=== PATIENT | female | born 1990 | race Caucasian/White ===

== ENCOUNTER 2021-02-21 14:37 | Emergency (ER) | payer OTHER, MEDICAID, SELFPAY ==
[2021-02-21 14:49] VITALS: BP 139/84; PULSE 80; RESP 16; TEMP 37.1; O2SAT 99; BMI 24.2
--- NOTE | 2021-02-21 14:53 | PC.NURSE ---
Exposure several days ago. Woke up today with SOB at rest with associated anxiety about it.
[2021-02-21 15:28] LABS: COVID19 -Nasal RAPID Negative (Negative)
--- NOTE | 2021-02-21 15:41 | ED_ITS ---
HPI - General Adult General Chief complaint: Shortness of Breath/Dyspnea Stated complaint: sob/congested this am Time Seen by Provider: 02/21/21 14:51 Source: patient Mode of arrival: Ambulatory History of Present Illness HPI narrative: 30-year-old woman presents with mild cough and dyspnea with exposure to COVID-19. She is on max needed currently. 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 Related Data Allergies Allergy/AdvReac Type Severity Reaction Status Date / Time No Known Drug Allergies Allergy Verified 02/21/21 14:52 Review of Systems Review of Systems Narrative: No fevers, loss of taste or smell, vomiting, diarrhea, dysuria Patient History Social History Smoking Status: Never smoker Smoking Status: Never smoker alcohol intake frequency: a few times a week Substance Use Type: marijuana Exam Narrative Exam Narrative: General: Alert appropriate in no acute distress Respiratory: Able to speak in full sentences, no obvious respiratory distress Skin: No obvious rashes, warm and dry Neurologic: Grossly intact no obvious asymmetries or abnormalities Psych: appropriate insight and affect, cooperative Initial Vital Signs Initial Vital Signs: Vital Signs Temperature 98.7 F 02/21/21 14:49 Pulse Rate 80 02/21/21 14:49 Respiratory Rate 16 02/21/21 14:49 Blood Pressure 139/84 02/21/21 14:49 Pulse Oximetry 99 02/21/21 14:49 Course Orders Ordered: ED Orders 02/21/21 14:52 COVID19 -Nasal swab/Pre-Proc Stat Vital Signs Vital signs: Vital Signs - 8 hr 02/21/21 14:49 Temperature 98.7 F Pulse Rate 80 Respiratory Rate 16 Blood Pressure 139/84 Pulse Oximetry 99 Medical Decision Making Lab Data Labs: Lab Results 02/21/21 Range/Units 14:45 SARS-CoV-2 (PCR) Negative (Negative) MDM Narrative Medical decision making narrative: 30-year-old woman with symptoms that are concerning for COVID with exposure to a household member who is positive. PCR testing is negative today. We discussed using [id number] antigen testing daily for the next couple of days to make sure that she is not simply in the very early window of her infection. Again encouraged her to consider vaccination. She is safe for home discharge Discharge Plan Departure Patient Disposition: Home Clinical Impression: Contact with and (suspected) exposure to covid-19 Instructions: DI for COVID-19 (Suspected or Confirmed ) Activity Restrictions/Additional Instructions: Your PCR COVID test was negative today. I would recommend using the [id number] tests that are available at [facility], [facility] and [facility]. These typically common a pack of 2 and I would recommend a test tomorrow and the following day to make sure that you are not missing infection as it is beginning to develop. I would encourage you to wear a mask when around your grandfather.
[2021-02-21 15:52] VITALS: BP 115/60; PULSE 84; RESP 18; O2SAT 97
== END 2021-02-21 15:58 | disposition home or self-care (01) ==
PROVIDERS: Emergency Provider Emergency Medicine
DX: R05 Cough (principal); R06.00 Dyspnea, unspecified; Z20.822 Contact with and (suspected) exposure to COVID-19
CPT/HCPCS: 87635; 99282; C9803

== ENCOUNTER → 2022-01-19 17:53 | Outpatient (CLI) | payer OTHER, MEDICAID, SELFPAY | PROVIDERS: Visit Provider Physician Assistant | DX: R30.0 Dysuria (principal) | CPT/HCPCS: 81002; 87086 ==

== ENCOUNTER 2022-02-21 13:34 | Emergency (ER) | payer OTHER, MEDICAID, SELFPAY ==
[2022-02-21 13:38] VITALS: BP 176/105; PULSE 91; RESP 20; TEMP 36.8; O2SAT 100; BMI 23.6
[2022-02-21 15:55] VITALS: BP 143/89; PULSE 74; O2SAT 99
[2022-02-21 16:00] VITALS: PULSE 79; O2SAT 100
--- NOTE | 2022-02-21 16:24 | ED.ANXIETY ---
HPI - Anxiety <MELIZA Schuster - Last Filed: 02/21/22 17:36> General Chief Complaint: Anxiety Stated Complaint: Mental health concerns Time Seen by Provider: 02/21/22 14:57 Source: patient Mode of arrival: Ambulatory History of Present Illness HPI narrative: This is a 31-year-old female presents to the emergency department with complaint worsening anxiety, tremors, and sadness which she states has affected her daily functioning and activities. She states that she is feeling like she is having a panic attack but does not know why. 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 Patient states that she does not want to hurt herself or any others, denies any audio or visual hallucinations. Patient states that she has not taking any medications and denies any substance abuse other than marijuana, she denies any excessive alcohol or ingestion of any harmful substances. Patient denies any dysuria, denies taking any medications every day, denies any nausea or vomiting. Denies any vision changes. Denies any recent fever illness. Patient states that she does have a therapist. Related Data Previous Rx's Medication Instructions Recorded diazepam 5 mg tablet 5 mg PO BID PRN anxiety #12 tabs 02/21/22 hydroxyzine HCl 25 mg tablet 25 mg PO TID PRN anxiety #20 tabs 02/21/22 Allergies Allergy/AdvReac Type Severity Reaction Status Date / Time No Known Drug Allergies Allergy Verified 02/21/22 13:38 Review of Systems <MELIZA Schuster - Last Filed: 02/21/22 17:36> Review of Systems Narrative: Review of systems is negative for acute abnormalities unless otherwise noted in HPI Patient History <MELIZA Schuster - Last Filed: 02/21/22 17:36> Social History Smoking Status: Never smoker Smoking Status: Never smoker alcohol intake frequency: holidays/special occasions only Substance Use Type: marijuana Exam <MELIZA Schuster - Last Filed: 02/21/22 17:36> Narrative Exam Narrative: Reviewed vitals signs and nursing notes. General: cooperative, comfortable, in no acute distress, well groomed, tearful but cooperative and pleasant, intermittent mild tremor with anxiety HEENT: symmetrical facial expressions, moist mucous membranes, EOMI, without nystagmus, scleral icterus, or abnormality Cardiovascular: regular rate and rhythm, no peripheral edema, warm extremities Respiratory: normal effort, able to speak in complete sentences, without wheezing, stridor, or abnormal breath sounds. No retractions or tachypnea. GI: abdomen soft, nontender to palpation, nondistended, without masses, rebound tenderness or exquisite tenderness with exam. MSK: moves all extremities, neurovascularly intact, no weakness, normal tone Skin: brisk capillary refill, without pallor or erythema Neuro: normal speech and cognition, A&O x3, ambulatory, clear speech without any focal neuro deficits Psych: mental status is grossly normal with anxiety, congruent mood, normal affect, pleasant and cooperative Initial Vital Signs Initial Vital Signs: Vital Signs Temperature 98.2 F 02/21/22 13:38 Pulse Rate 91 H 02/21/22 13:38 Respiratory Rate 20 02/21/22 13:38 Blood Pressure 176/105 H 02/21/22 13:38 Pulse Oximetry 100 02/21/22 13:38 Oxygen Delivery Method 02/21/22 13:38 <Kendrick Mota MD - Last Filed: 02/21/22 18:29> Initial Vital Signs Initial Vital Signs: Vital Signs Temperature 98.2 F 02/21/22 13:38 Pulse Rate 91 H 02/21/22 13:38 Respiratory Rate 20 02/21/22 13:38 Blood Pressure 176/105 H 02/21/22 13:38 Pulse Oximetry 100 02/21/22 13:38 Oxygen Delivery Method 02/21/22 13:38 Course <MELIZA Schuster - Last Filed: 02/21/22 17:36> Orders Ordered: ED Orders 02/21/22 13:45 Consult to [employer] W[employer] INSTALLER - Computer Technology Teacher Stat 02/21/22 17:46 UA dip and micro [Urinalysis and Microscopic] Stat Discontinued Medications Diazepam (Diazepam 5 Mg Tablet) 5 mg PO NOW ONE Stop: 02/21/22 16:22 Last Admin: 02/21/22 16:42 Dose: 5 mg Documented By: EB Consultations Consultation #1: Please see note from Michelle aids social worker, she met with patient and provider resources for outpatient talk therapy and mental health crisis Vital Signs Vital signs: Vital Signs - 8 hr 02/21/22 13:38 02/21/22 15:55 02/21/22 15:55 Temperature 98.2 F Pulse Rate 91 H 74 Respiratory Rate 20 Blood Pressure 176/105 H 143/89 H Pulse Oximetry 100 99 Oxygen Delivery Method Room Air 02/21/22 16:00 02/21/22 16:30 02/21/22 17:00 Temperature Pulse Rate 79 73 70 Respiratory Rate Blood Pressure Pulse Oximetry 100 99 99 Oxygen Delivery Method 02/21/22 17:14 02/21/22 17:14 Temperature Pulse Rate 72 Respiratory Rate Blood Pressure 136/72 Pulse Oximetry 99 Oxygen Delivery Method <Kendrick Mota MD - Last Filed: 02/21/22 18:29> Orders Ordered: ED Orders 02/21/22 13:45 Consult to [employer]OL[employer] WIRE INSTALLER - Computer Technology Teacher Stat 02/21/22 17:46 UA dip and micro [Urinalysis and Microscopic] Stat Discontinued Medications Diazepam (Diazepam 5 Mg Tablet) 5 mg PO NOW ONE Stop: 02/21/22 16:22 Last Admin: 02/21/22 16:42 Dose: 5 mg Documented By: EB Vital Signs Vital signs: Vital Signs - 8 hr 02/21/22 13:38 02/21/22 15:55 02/21/22 15:55 Temperature 98.2 F Pulse Rate 91 H 74 Respiratory Rate 20 Blood Pressure 176/105 H 143/89 H Pulse Oximetry 100 99 Oxygen Delivery Method Room Air 02/21/22 16:00 02/21/22 16:30 02/21/22 17:00 Temperature Pulse Rate 79 73 70 Respiratory Rate Blood Pressure Pulse Oximetry 100 99 99 Oxygen Delivery Method 02/21/22 17:14 02/21/22 17:14 Temperature Pulse Rate 72 Respiratory Rate Blood Pressure 136/72 Pulse Oximetry 99 Oxygen Delivery Method MDM - Anxiety <MELIZA Schuster - Last Filed: 02/21/22 17:36> Lab Data Labs: Lab Results 02/21/22 Range/Units 17:46 Urine Color Yellow Urine Appearance Clear Urine pH 7.0 (4.5-8.0) Ur Specific [place] 1.010 (1.000-1.035) Urine Protein Negative (Negative) Urine Glucose (UA) Negative (Negative) g/dL Urine Ketones Negative (NEGATIVE) Urine Occult Blood Negative (Negative) Urine Nitrate Positive H (Negative) Urine Bilirubin Negative (NEGATIVE) Urine Urobilinogen 0.2 (0.2) E.U./dL Ur Leukocyte Esterase Negative (NEGATIVE) Urine RBC None seen (0-5/HPF) Urine WBC None seen (0-5/HPF) Ur Squamous Epith Cells 5-10 /hpf H (0-5/HPF) Amorphous Sediment 1+ Urine Bacteria None seen (None) Ur Culture Indicated? Cult not indicated Point of Care Testing Test Results Negative Urine Dip Bedside Urine Glucose Negative Bedside Urine Bilirubin - Negative Bedside Urine Ketone - Negative Urine Specific [place] 1.015 Bedside Urine Occult Blood - Negative Bedside Urine pH 6.0 Bedside Urine Protein - Negative Bedside Urine Urobilinogen - Negative Bedside Urine Nitrite - Negative Bedside Urine Leukocytes - Negative Esterase MDM Narrative Medical decision making narrative: This is a pleasant 31-year-old female presents to the emergency department with a panic attack and anxiety symptoms that she states have been worst today, she denies any significant triggers she states that she has been stressed out but otherwise has been healthy and she states that she has tremors and overwhelming symptoms of anxiety and depression where it is affecting her daily activities. Patient denies any homicidal or suicidal ideation, denies audio or visual hallucinations, she is not gravely disabled, she has good support with her significant other, she is not , she is not had any syncope, ingestion, neuro changes, and has a history of anxiety but does not take any medications. Patient's primary care provider is in [place], she states that she keeps in touch with that provider for her cervical dystonia. She has had an SSRI in the past, states it increased her tremor from her dystonia and was not a good choice. Today in the emergency department she is given 5 mg of diazepam which helped reduce her anxiety symptoms, she was counseled about mindfulness, meditation, deep breathing techniques to reduce her symptoms of anxiety and panic. She states that she does have a therapist, Michelle from social Work met with the patient and provided outpatient resources for mental health crisis and other counseling resources as needed. Encouraged patient to establish care with a primary care provider to follow-up with. She was given a as needed prescription of hydroxyzine for daytime and diazepam for as needed panic. She endorses a safety contract and will return to the emergency department for any worsening symptoms of anxiety and/or depression. Patient is appropriate and amenable to discharge home. Vital signs are stable on repeat examination is unremarkable. Patient has been informed of results. Patient has been given strict return to ER precautions for any new or worsening symptoms. Patient understands to follow up closely with outpatient providers as instructed. Patient understands plan and agrees to discharge home. All questions and concerns answered at this time. <Kendrick Mota MD - Last Filed: 02/21/22 18:29> Lab Data Labs: Lab Results 02/21/22 Range/Units 17:46 Urine Color Yellow Urine Appearance Clear Urine pH 7.0 (4.5-8.0) Ur Specific [place] 1.010 (1.000-1.035) Urine Protein Negative (Negative) Urine Glucose (UA) Negative (Negative) g/dL Urine Ketones Negative (NEGATIVE) Urine Occult Blood Negative (Negative) Urine Nitrate Positive H (Negative) Urine Bilirubin Negative (NEGATIVE) Urine Urobilinogen 0.2 (0.2) E.U./dL Ur Leukocyte Esterase Negative (NEGATIVE) Urine RBC None seen (0-5/HPF) Urine WBC None seen (0-5/HPF) Ur Squamous Epith Cells 5-10 /hpf H (0-5/HPF) Amorphous Sediment 1+ Urine Bacteria None seen (None) Ur Culture Indicated? Cult not indicated Point of Care Testing Test Results Negative Urine Dip Bedside Urine Glucose Negative Bedside Urine Bilirubin - Negative Bedside Urine Ketone - Negative Urine Specific [place] 1.015 Bedside Urine Occult Blood - Negative Bedside Urine pH 6.0 Bedside Urine Protein - Negative Bedside Urine Urobilinogen - Negative Bedside Urine Nitrite - Negative Bedside Urine Leukocytes - Negative Esterase Discharge Plan Departure Patient Disposition: Home Clinical Impression: Acute anxiety Instructions: Anxiety Disorders, Anxiety and Panic Attacks (Alternative Therapy), DI for Anxiety -- Adult, Yoga May Help Reduce Anxiety and Stress Activity Restrictions/Additional Instructions: *You have been diagnosed with an acute episode of anxiety, similar to a panic attack. You have a heightened level anxiety which will take a little while to go down since you are currently in a acute phase. Luckily when you feel the trembles and shaking the wave adrenaline is over and you are already moving forward. Please remember to be kind to yourself and this is a challenging state of mind and situation to deal with. It is hard no matter who you are and what your stressors are and there is always complicating factors. Please follow-up with any outpatient resources that Michelle has connected for you, I would recommend a counselor and at minimum and a primary care provider for you to check in with and to discuss your symptoms. If you feel your anxiety starting to brew, try to intervene as soon as possible by taking deep breaths in calming your head and heart, change your environment, go outside go for a walk, try to remove herself from the situation and focus. You can take hydroxyzine every 8 hours as needed for anxiety, this is not habit-forming and is safe to take however it does cause mild sedation and probably a dry mouth. Please stay hydrated, call the number below to set an appointment with a primary care provider, it may take quite some time but at least he will have it for later. Please call crisis number if you feel symptoms severe again like today. If your symptoms are progressive, take a diazepam, do not drive with that medication and focus on calming yourself down as best as able. This is normal, things are hard, I am proud of you for asking for help and please come back if you feel overwhelming symptoms again or if you are not safe at home. *What to do: *Please continue to take your regular medications as directed. [x ] New medication prescriptions sent to your pharmacy: [ [facility] French] [ ] New medication written as a paper prescription [ ] No new medications given *Please follow up with your primary care provider in 2-3 days, call for an appointment. Let them know you were seen in the Emergency Department and that we asked that you be seen for follow-up. We will electronically transmit a record of today's note if your PCP is in our system *If you do not have a primary care provider please contact [phone] to establish care with one of the [facility] primary care providers. *Return to Emergency Department if you should have any new, worsening, or concerning symptoms, such as [fever greater than 101F, chills, worsening pain, persistent vomiting or other bothersome symptoms]. Prescriptions: New diazepam 5 mg tablet 5 mg PO BID PRN (Reason: anxiety) Qty: 12 0RF hydroxyzine HCl 25 mg tablet 25 mg PO TID PRN (Reason: anxiety) Qty: 20 0RF Referrals: [facility] [Outside] Visit Report Forms: Patient Portal/API <Kendrick Mota MD - Last Filed: 02/21/22 18:29> Cosign ED Attending Cosignature Attestation: I was immediately available in the department for consultation. ?This documentation has been reviewed and I agree with assessment and plan. Supervised by Kendrick Mota MD
[2022-02-21 16:30] VITALS: PULSE 73; O2SAT 99
[2022-02-21] MEDS: diazePAM 5 MG TABLET PO (16:42)
--- NOTE | 2022-02-21 16:46 | CM.SWNOTE ---
LEAD DATA ARCHITECT Assessment Note Patient is 31 y/o female who presents to ED due to concern for worsening and increasing Depression and Anxiety. Patient endorses she has dx of Cervical Dystonia and it has impacted her with tremors, and constant muscle spasms leading to depression and anxiety regarding. Patient endorses that this anxiety attack today was the worst she has experienced in ten years. Patient also endorsees that she went to a new quality improvement coordinator (rn) who made some remarks that did not sit well with her and she states that her nerves have been impacted poorly since that appt. 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 Patient does not have PCP listed, patient has Medicaid and [employer] insurance. Patient denies HI and SI. Patient endorses she has a therapist named Shadi Manzano in [place], [place]. LEAD DATA ARCHITECT searches for therapist and cannot identify contact information. Patient endorses that she engages in talk therapy and has good rapport with therapist but she is interested in more therapy tools. LEAD DATA ARCHITECT discusses square breathing and identifying senses as anxiety de-escalation techniques. Patient identifies that being with her dog, yoga, hiking, running, and swimming are enjoyable and therapeutic activities that help her. LEAD DATA ARCHITECT provides patient with list of MH providers that accept her insurance and crisis contacts as well. Patient denies further needs from LEAD DATA ARCHITECT. It is the opinion of this LEAD DATA ARCHITECT that patient is safe to d/c to home upon medical clearance. LEAD DATA ARCHITECT reviews the above with ED provider MELIZA Costello Patient to d/c to home upon medical clearance, patient to incorporate techniques to address anxiety and seek out new MH provider. COREY Patel
[2022-02-21 17:00] VITALS: PULSE 70; O2SAT 99
[2022-02-21 17:14] VITALS: BP 136/72; PULSE 72; O2SAT 99
[2022-02-21 17:53] LABS: Appearance Urine UA CLEAR; Bilirubin Urine UA NEGATIVE (NEGATIVE); Color Urine UA YELLOW; Glucose Urine UA NEGATIVE (Negative); Ketones Urine UA NEGATIVE (NEGATIVE); Leukocyte Esterase Urine UA NEGATIVE (NEGATIVE); Nitrite Urine UA POSITIVE (Negative); Occult Blood Urine UA NEGATIVE (Negative); Protein Urine UA NEGATIVE (Negative); Urobilinogen Urine UA 0.2 E.U./dL (0.2)
[2022-02-21 18:21] LABS: Amorphous Sediment Urine 1+; Bacteria Urine None Seen; Culture Indicated Urine Cult Not Indicated; RBC Urine None Seen (0-5/HPF); Squamous Epithelial Cell Urine 5-10 /HPF (0-5/HPF); WBC Urine None Seen (0-5/HPF)
== END 2022-02-21 17:20 | disposition home or self-care (01) ==
PROVIDERS: Emergency Provider Nurse Practitioner Critical Care Medicine
DX: F41.9 Anxiety disorder, unspecified (principal)
CPT/HCPCS: 81001; 81003; 81025; 99283

== ENCOUNTER → 2022-04-01 07:27 | Outpatient (CLI) | payer OTHER, MEDICAID, SELFPAY | PROVIDERS: Visit Provider Nurse Practitioner Family | DX: R30.0 Dysuria (principal); N89.8 Other specified noninflammatory disorders of vagina | CPT/HCPCS: 81002; 81025; 87086; 87210 ==

== ENCOUNTER → 2022-07-16 16:53 | Outpatient (CLI) | payer OTHER, MEDICAID, SELFPAY ==
--- NOTE | 2022-07-16 16:54 | DI.RAD.S_ITS ---
PROCEDURE: XR KNEE LT 3V INDICATIONS: ski accident TECHNIQUE: 3 views of the knee were acquired. COMPARISON: None. FINDINGS: Bones: No fractures or dislocations. No suspicious bony lesions. Soft tissues: No joint effusion. No suspicious soft tissue calcifications. IMPRESSION: No acute finding. Dictated by: Kota Marrero M.D. on 07/17/2022 at 11:40 Approved by: Kota Marrero M.D. on 07/17/2022 at 11:41
== END ==
PROVIDERS: PCP Family Medicine; Referring Provider Nurse Practitioner Family; Visit Provider Nurse Practitioner Family
DX: M25.562 Pain in left knee (principal)
CPT/HCPCS: 73562

== ENCOUNTER 2022-07-17 05:13 | Emergency (ER) | payer OTHER, MEDICAID, SELFPAY ==
[2022-07-17] VITALS (7 sets, daily range): BP systolic 116–136; BP diastolic 57–74; PULSE 62–88; RESP 16–18; TEMP 36.3–36.7; O2SAT 97–99; BMI 24.3
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
--- NOTE | 2022-07-17 05:36 | DI.CT.S_ITS ---
PROCEDURE: CT LE LT W CON INDICATIONS: severe knee pain, swelling, ski injury, neg xray TECHNIQUE: Noncontrast 1-1.5 mm axial sections acquired from the mid-patella to the proximal tibia, with coronal and sagittal reformats. COMPARISON: [facility], CR, XR KNEE LT 3V, 07/16/2022, 16:53. FINDINGS: Image quality: Excellent. Bones: No acute osseous fracture or dislocation. Mild medial compartment joint space narrowing. 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 A congenitally shallow trochlear groove is seen with lateral patellar tilting but no patellar subluxation. Soft tissues: Trace joint effusion. The articular cartilages, menisci, ligaments, and tendons are not well evaluated with standard CT. The musculature surrounding the knee is normal in bulk. No significant medial popliteal cyst. IMPRESSION: 1. No acute osseous abnormality. If there is continued clinical concern for trabecular bone injury or soft tissue injury, MRI of the knee could be performed for further evaluation. 2. Nonaggressive sclerotic lesion in the posterior aspect of the proximal tibial metaphysis is consistent with a healed nonossifying fibroma. 3. Congenitally shallow trochlear groove with lateral patellar tilting but no significant patellar subluxation. No signs of recent patellar dislocation. There is no significant discrepancy when compared to the overnight preliminary report. Approved by: Ti Cruz M.D. on 07/17/2022 at 8:23
== END 2022-07-17 06:35 | disposition home or self-care (01) ==
PROVIDERS: Emergency Provider Emergency Medicine; PCP Family Medicine
DX: M23.92 Unspecified internal derangement of left knee (principal); W00.0XXA Fall on same level due to ice and snow, initial encounter; Y93.23 Activity, snow (alpine) (downhill) skiing, snowboarding, sledding, tobogganing and snow tubing
CPT/HCPCS: 73700; 99281; 99284